=== PATIENT | male | born 1985 | race African-American/Black ===

== ENCOUNTER 2016-12-02 21:52 | Emergency (ER) | payer OTHER ==
[2016-12-02 21:56] VITALS: BP 156/79; PULSE 125; BMI 20.9
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
[2016-12-02] MEDS ORDERED: LIDOCAINE HCL 2% (20ML MULTI-DOSE VIAL) NR ONE (22:44)
[2016-12-02] MEDS ORDERED: TETANUS AND DIPHTHERIA TOXOID 0.5 ML DISP.SYRIN IM ONE (23:04)
[2016-12-02] MEDS ORDERED: AMOX TR/POT CLAV 500MG/125MG TABLETS (FP) PO ONE (23:06)
[2016-12-02] MEDS ORDERED: AMOX TR/POT CLAV 500MG/125MG TABLETS (FP) ONE (23:12)
== END 2016-12-03 | disposition home or self-care (01) ==
LOC: JER 21:52
PROC: 0HQ1XZZ Repair Face Skin, External Approach (ICD-10-PCS; principal; 2016-12-02)
PROC: 3E0234Z Introduction of Serum, Toxoid and Vaccine into Muscle, Percutaneous Approach (ICD-10-PCS; 2016-12-02)
DX: S06.0X0A Concussion without loss of consciousness, initial encounter (principal); S01.81XA Laceration without foreign body of other part of head, initial encounter; S01.311A Laceration without foreign body of right ear, initial encounter; Y04.2XXA Assault by strike against or bumped into by another person, initial encounter; Y93.89 Activity, other specified; Y92.89 Other specified places as the place of occurrence of the external cause
CPT/HCPCS: 12014; 70450-TC; 90471; 99282-25

== ENCOUNTER 2017-01-10 17:04 | Emergency (ER) | payer OTHER ==
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
[2017-01-10 17:13] VITALS: BP 115/63; PULSE 63; TEMP 97.5; BMI 19.5
--- NOTE | 2017-01-10 17:58 | PDOC ---
Suture Removal/Wound Check HPI - History of Present Illness Chief Complaint: Suture/Staple Removal(Here) Stated Complaint: STITCHES REMOVAL Time Seen by Provider: 01/10/17 17:05 History Source: Yes: Patient Exam Limitations: Yes: No Limitations Treated at: [facility] ED Date of Last ED visit: 12/03/16 - Previous ED Treatment Type of procedure performed on last visit: Yes: Laceration Repair Past History - Past Medical History Allergies/Adverse Reactions: Allergies No Known Allergies Allergy (Verified 01/10/17 17:13) Home Medications: Ambulatory Orders Amoxicillin/Potassium Clav [Augmentin 500-125 Tablet] 1 each PO TID #15 tablet 12/02/16 General: Yes: no pertinent history Surgical History: Yes: No Surgical History - Family History Significant Family History: Yes: no pertinent family hx - Immunization History Immunizations Up to Date: Yes Tetanus Status: Less than 5 years - Social History Smoking Status: Never smoked Number of Ciarettes Per Day: 5 Suture Removal/Wound Check PE - Physical Exam Laceration/Wound Check Symptoms: reports: None Current Severity Level: None Maximum Severity Level: None Pain Localization: None *Review of Systems - Review of Systems Able to Perform ROS?: Yes Constitutional: No: Symptoms Reported HEENTM: No: Symptoms Reported Respiratory: No: Symptoms reported Cardiac (ROS): No: Symptoms Reported ABD/GI: No: Symptoms Reported : No: Symptoms Reported Musculoskeletal: No: Symptoms Reported Integumentary: Yes: See [facility] Medical Decision Making - Medical Decision Making 01/10/17 17:59 cc: suture removal right face well healed dry skin intact sutures removed *DC/Admit/Observation/Transfer Diagnosis at time of Disposition: Visit for suture removal - Discharge Dispostion Disposition: HOME Condition at time of disposition: Good - Referrals Referrals: Chang Rey [Primary Care Provider] - - Patient Instructions Printed Discharge Instructions: DI for Suture Removal Additional Instructions: wash as per normal routine resume normal activity apply vitamin E oil or cocoa butter to smoothe the scar
== END 2017-01-10 18:03 | disposition home or self-care (01) ==
LOC: JERFT 17:04
DX: Z48.02 Encounter for removal of sutures (principal)
CPT/HCPCS: 99281-25